=== PATIENT | female | born 1990 | race Two or more races ===

== ENCOUNTER 2022-10-10 20:08 | Inpatient (IN) | payer OTHER ==
[~2022-10-10] VITALS: Ht 167.6 cm; Wt 80.7 kg
[2022-10-10] VITALS (22 sets, daily range): BP systolic 94–154; BP diastolic 53–100
[2022-10-10] MEDS ORDERED: PRENTAB9 PO (20:43)
[2022-10-10] MEDS ORDERED: TUMS500C PO (20:43)
[2022-10-10] MEDS ORDERED: HOME MED LIST COMPLETE! XX SCH (20:45)
[2022-10-10] MEDS ORDERED: LACTATED RINGER'S 1000 ML IV STA (20:58)
[2022-10-10] MEDS ORDERED: METHYLERGONOVINE MALEATE 0.2 MG/ML VIAL (J2210) IM PRN (21:00)
[2022-10-10] MEDS ORDERED: TRANEXAMIC ACID INJection 1,000 MG in NS 100 ML IV PRN (21:00)
[2022-10-10] MEDS ORDERED: CARBOPROST TROMETHAMINE 250 MCG/ML AMP IM PRN (21:00)
[2022-10-10] MEDS ORDERED: OXYTOCIN DRIP 30 UNITS in IV 1 EA IV PRN ×6 (21:00)
[2022-10-10] MEDS ORDERED: OXYTOCIN INJ 10 UNITS/ML VIAL (J2590) IV PRN (21:00)
[2022-10-10] MEDS ORDERED: LIDOCAINE 1% MDV 20ML VIAL INFIL PRN (21:00)
[2022-10-10] MEDS ORDERED: OXYTOCIN INJ 10 UNITS/ML VIAL (J2590) IM PRN (21:00)
[2022-10-10 21:15] LABS: BASO # 0.1 10^3/uL (0.0-0.2); BASO % 0.9 % (0.0-1.0); EOS # 0.3 10^3/uL (0.0-0.5); EOS % 2.6 % (0.0-3.0); HEMATOCRIT 37.7 % (36.0-47.0); HEMOGLOBIN 12.5 g/dl (12.0-15.5); LYMPH % 18.6 % (24.0-44.0); MEAN CORPUSCULAR HEMOGLOBIN 27.1 pg (27.0-33.0); MEAN CORPUSCULAR HGB CONC 33.2 g/dl (32.0-36.5); MEAN CORPUSCULAR VOLUME 81.6 fl (80.0-96.0); MONO # 0.7 10^3/uL (0.0-0.8); MONO % 6.5 % (2.0-8.0); NEUTROPHILS # 7.5 10^3/uL (1.5-8.5); NEUTROPHILS % 70.8 % (36.0-66.0); PLATELET COUNT, AUTOMATED 209 10^3/uL (150-450); RED BLOOD COUNT 4.62 10^6/uL (4.00-5.40); WHITE BLOOD COUNT 10.5 10^3/uL (4.0-10.0)
[2022-10-10] MEDS ORDERED: PENICILLIN G POTASSIUM 5 MU IV 5 MU in D5W MINI-BAG PLUS 100 ML IV STA (21:16)
[2022-10-10] MEDS ORDERED: FENTANYL/ROPIVACAINE/NACL BAG 100 ML EPIDURAL SCH (22:20)
[2022-10-10] MEDS ORDERED: ePHEDrine SULFATE 25 MG/5 ML(5MG/ML) SYRINGE IVP PRN (22:20)
[2022-10-10] MEDS ORDERED: diphenhydrAMINE 50MG/ML VIAL IV PRN (22:20)
[2022-10-10] MEDS ORDERED: ONDANSETRON 4MG 2ML VIAL IV PRN (22:20)
[2022-10-10] MEDS ORDERED: LR 500 ML IV PRN (22:20)
[2022-10-10] MEDS ORDERED: EPIDURAL/PCA KEYS XX PRN (22:20)
[2022-10-10] MEDS ORDERED: NALOXONE INJ 0.4MG/1ML VIAL (J2310 PER 1MG) IV PRN (22:20)
[2022-10-10] MEDS: LR 1,000 ML IV SCH (23:06)
[2022-10-11] VITALS (9 sets, daily range): BP systolic 96–115; BP diastolic 51–60
[2022-10-11 00:22] LABS: CORD GAS ABE A -11.8; CORD GAS ABE V -9.3; CORD GAS HCO3 A 19.3 MEQ/L; CORD GAS HCO3 V 19.2 MEQ/L; CORD GAS O2 SAT A 49.1 %; CORD GAS O2 SAT V 60.5 %; CORD GAS PCO2 V 52.1 mmHg; CORD GAS PH A 7.072 UNITS; CORD GAS PH V 7.185 UNITS; CORD GAS PO2 A 29.8 mmHg; CORD GAS PO2 V 32.1 mmHg; CORD GAS SBC A 14.4 MEQ/L; CORD GAS SBC V 16.4 MEQ/L; CORD GAS TCO2 A 21.4 MEQ/L; CORD GAS TCO2 V 20.8 MEQ/L
[2022-10-11] MEDS ORDERED: DOCUSATE SODIUM 100MG CAPSULE PO PRN (00:25)
[2022-10-11] MEDS ORDERED: METHYLERGONOVINE MALEATE 0.2 MG/ML VIAL (J2210) IM PRN (00:25)
[2022-10-11] MEDS ORDERED: RHOGAM 300 MCG (1500 IU) INJ (J2790) IM SCH (00:25)
[2022-10-11] MEDS ORDERED: ACETAMINOPHEN 500 MG TAB PO PRN (00:25)
[2022-10-11] MEDS ORDERED: IBUPROFEN 800 MG TAB PO PRN (00:25)
[2022-10-11] MEDS ORDERED: METHYLERGONOVINE MALEATE 0.2 MG TAB PO PRN (00:25)
[2022-10-11] MEDS ORDERED: OXYTOCIN DRIP 30 UNITS in IV 1 EA IV SCH ×4 (00:25)
[2022-10-11] MEDS ORDERED: DIBUCAINE 1% OINTMENT 30GM TOP PRN (00:25)
[2022-10-11] MEDS: PEN G POT 3,000,000 UNIT/50 ML 3,000,000 UNIT in IV 1 EA IV SCH ×2 (01:45→05:45)
[2022-10-11] MEDS: LR 1,000 ML IV SCH (06:03)
[2022-10-11] MEDS: PRENATAL VITAMINS CHEWABLE TABLET PO SCH (08:48)
[2022-10-11] MEDS: IBUPROFEN 600MG TAB PO PRN (21:51)
[2022-10-12] MEDS: ACETAMINOPHEN TAB 650MG DOSE (2X325MG) PO PRN ×2 (05:22→05:52)
[2022-10-12 06:00] VITALS: BP 98/60
[2022-10-12] MEDS: PRENATAL VITAMINS CHEWABLE TABLET PO SCH (08:28)
[2022-10-12] MEDS: IBUPROFEN 600MG TAB PO PRN (08:28)
[2022-10-12] MEDS ORDERED: IBUP-1022 PO (08:56)
[2022-10-12] MEDS ORDERED: COLA100C5 PO (08:56)
[2022-10-12] MEDS ORDERED: ACET1TAB55 PO (08:56)
[2022-10-13] MEDS ORDERED: MEASLES,MUMPS,RUBELLA VACCINE INJ (MMR-II) (90707) SC.IMMUN ONE (09:00)
== END 2022-10-12 12:10 | disposition home or self-care (01) | DRG 807 ==
LOC: M LDO 20:08 → M LDI 21:08 → M OBS 10-11 04:54
PROVIDERS: ADMIT Obstetrics & Gynecology; ATTEND Obstetrics & Gynecology
PROC: 10E0XZZ Delivery of Products of Conception, External Approach (ICD-10-PCS; principal; 2022-10-10)
PROC: 0KQM0ZZ Repair Perineum Muscle, Open Approach (ICD-10-PCS; 2022-10-10)
PROC: 10907ZC Drainage of Amniotic Fluid, Therapeutic from Products of Conception, Via Natural or Artificial Opening (ICD-10-PCS; 2022-10-10)
PROC: 0HQ9XZZ Repair Perineum Skin, External Approach (ICD-10-PCS; 2022-10-10)
DX: O48.0 Post-term pregnancy (principal); Z37.0 Single live birth; Z3A.40 40 weeks gestation of pregnancy; O99.824 Streptococcus B carrier state complicating childbirth; O62.2 Other uterine inertia; O70.1 Second degree perineal laceration during delivery; O70.0 First degree perineal laceration during delivery